=== PATIENT | female | born 1970 | race Caucasian/White ===

== ENCOUNTER → 2021-02-09 10:55 | Outpatient (BNVA) | payer MEDICARE, MEDICAID, SELFPAY | PROVIDERS: Family Provider Family Medicine; Visit Provider Psychiatry & Neurology Psychiatry | DX: F43.12 Post-traumatic stress disorder, chronic (principal); F25.0 Schizoaffective disorder, bipolar type; Z79.899 Other long term (current) drug therapy; G47.00 Insomnia, unspecified | CPT/HCPCS: 90792 ==